=== PATIENT | female | born 1985 | race Native Hawaiian/Other Pacific Islander ===

== ENCOUNTER 2017-10-27 07:55 | Inpatient (IN) | payer OTHER ==
[2017-10-27] MEDS: Lactated Ringer's 1,000 ML IV SCH ×2 (08:30→23:03)
--- NOTE | 2017-10-27 08:49 | OBHP ---
Datetime: 10/27/2017 08:45 IP Adm Impression: Term, intrauterine IP Admit Plan: Admit to unit Admit Comment, IP Provider: @ 39.4 wks GA c/o diffuse itching worsneing, no rash and decreased movments x 1 days, dneis lof, vb, and ctx pain every 5-10 min increasing intesnsity adn seviery t 12/18 OB: P0 GY: Ndenies PMH: hypothryoid, anemia PSH: dneis FHX: dneis SHX: negaitve etoh/tobacc/drugs MEDS: Iron, pnv A/P @ 39.4 wks GA IOL for intrahepatic cholestaiss -admit to L+D -r'b/a/i of iold dw paitent -npo, ivf -admissoin labs -cervidl -pain manamgnet Pelvic Type - PN: Adequate Extremities - PN: Normal Abdomen - PN: Normal Back - PN: Normal Breast - PN: Normal Lungs - PN: Normal Heart - PN: Normal Thyroid - PN: Normal Neurologic - PN: Normal HEENT - PN: Normal General - PN: Normal Presentation-Admit: Vertex FHR - Baseline A Provider: 150 Membranes, Provider: Intact Contraction Comments Provider: irregular Comments, ACOG Physical Exam: Abd: minimla erytema on rlq Gestation - Est Wks by US: 39.4 IP Hx Assessment: The History has been Reviewed and is Current EGA AdmitDate IP: 39.4 Vital Signs Provider: Reviewed; Within Normal Limits IP Chief Complaint: Other NICHD Variability Prov Fetus A: Moderate 6-25bpm FHR Category Provider Fetus A: Category I NICHD Decel Fetus A IP Provider: None Genitourinary Exam: Normal DTRs - PN: Normal
[2017-10-27 09:26] LABS: BASO % 0.3 % (0.0-2.0); EOS % 0.5 % (0.0-4.0); HEMOGLOBIN 9.8 g/dL (11.0-16.0); LYMPH % 16.5 % (20.0-40.0); MEAN CORPUSCULAR HEMOGLOBIN 23.6 pg (27.0-31.0); MEAN PLATELET VOLUME 9.3 fL (7.2-11.7); MONO # 0.3 K/uL (0.0-0.8); MONO % 5.9 % (0.0-10.0); NEUT # 4.5 K/uL (1.8-7.0); NEUT % 76.8 % (50.0-75.0); NRBC % 0.1 % (0.0-2.0); RBC 4.14 Mil/uL (3.80-5.20); RED CELL DISTRIBUTION WIDTH 29.5 % (11.5-14.5); WHITE BLOOD COUNT 5.8 K/uL (4.8-10.8)
[2017-10-27 09:53] LABS: ALT/SGPT 8 U/L (9-52); AST/SGOT 21 U/L (14-36); BLOOD UREA NITROGEN 3 mg/dL (7-17); CALCIUM 8.6 mg/dl (8.6-10.4); GFR AFRICAN-AMERICAN > 60; GFR NON-AFRICAN AMERICAN > 60
--- NOTE | 2017-10-27 21:25 | OBPN ---
Datetime: 10/27/2017 21:22 IP Progress Impression: Normal progression of labor IP Progress Plan: Continue present management Membranes, Provider: Intact Contraction Comments Provider: q 2-5 min FHR - Baseline A Provider: 140 Gestation - Est Wks by US: 39.4 Presentation-Admit: Vertex IP Progress Note Comment: Pt seen and examiend and rperots crampign eeyr 5 min, dnie slof, vb, +Fm VSs EF: Cat I TOCO: q 2- 5min MEDS: Cervidl removed 21:00 A/P @ 39+ wks IOL for intrahepatic cholestasis of -s/p cervidl -cont toco and efm -cytotoc -cont ion -pain mangmnet Vital Signs Provider: Reviewed; Within Normal Limits FHR Category Provider Fetus A: Category I NICHD Variability Prov Fetus A: Moderate 6-25bpm Dilatation, Provider: 1 Effacement, Provider: 50 Station, Provider: -3 NICHD Decel Fetus A IP Provider: None
[2017-10-28] MEDS ORDERED: Oxytocin 30 UNIT 30 UNITS/500 ML BAG IV SCH (02:30)
[2017-10-28] MEDS ORDERED: Oxytocin 30 UNIT 30 UNITS/500 ML BAG IV ONE (02:34)
[2017-10-28] MEDS ORDERED: Fentanyl/Bupivacaine HCl 0 ML EPI ONE (07:18)
--- NOTE | 2017-10-28 08:56 | OBPN ---
Datetime: 10/28/2017 08:53 IP Progress Impression: Normal progression of labor; Reassuring heart rate IP Progress Plan: Continue present management Membranes, Provider: Intact FHR - Baseline A Provider: 150 Gestation - Est Wks by US: 39.5 Presentation-Admit: Vertex IP Progress Note Comment: pt seen and examiend reporting pressure s/p epidural VSS VE: 2cm A/P @ 39.5 wks GA iol for inhtraheptic choelstaiss -pitocin -pain amgnnet -cont current managment FHR Category Provider Fetus A: Category I NICHD Variability Prov Fetus A: Moderate 6-25bpm Dilatation, Provider: 2 Effacement, Provider: 60 Station, Provider: -2 NICHD Decel Fetus A IP Provider: None
--- NOTE | 2017-10-28 11:57 | OBPN ---
Datetime: 10/28/2017 11:54 IP Progress Impression: Normal progression of labor IP Procedures: Artificial ROM IP Progress Plan: Continue present management Membranes, Provider: Ruptured Amniotic Fluid Color, Provider: Clear FHR - Baseline A Provider: 150 Gestation - Est Wks by US: 39.5 Presentation-Admit: Vertex IP Progress Note Comment: pt seen adn examiend s/p eidural VSS EFM: Cat I DODIE: q 2-5 min VE: 4cm Arom clear A/P G1p) @ 39.5 wks GA in labor -cont pitoicn as per fprotocol -pain manamgnet -cont toco adn efm Vital Signs Provider: Reviewed; Within Normal Limits FHR Category Provider Fetus A: Category I NICHD Variability Prov Fetus A: Moderate 6-25bpm Dilatation, Provider: 4 Effacement, Provider: 70 Station, Provider: -1 NICHD Decel Fetus A IP Provider: None
--- NOTE | 2017-10-28 17:24 | OBPN ---
Datetime: 10/28/2017 17:18 IP Progress Plan: Continue present management Membranes, Provider: Ruptured FHR - Baseline A Provider: 150 Gestation - Est Wks by US: 39.5 Presentation-Admit: Vertex IP Progress Note Comment: pt complaiing of pain on right side that comes and goes s/ pepidural VS as above EFM: cat I TOCO: q 2-4 min Pitoicn 12 mu/min VE: /-1 IUPC inserted A/P @ 39.5 wks GA in labor -f/u monetvideo unitsl -pitoicn augmentation as per protocal -cont current manamgnet NICHD Variability Prov Fetus A: Moderate 6-25bpm
[2017-10-28] MEDS ORDERED: Fentanyl/Bupivacaine HCl 250 ML EPI ONE (18:19)
[2017-10-28] MEDS ORDERED: Sodium Citrate/Citric Acid 15 ml Sol PO STA (19:07)
--- NOTE | 2017-10-28 19:19 | OBPN ---
Datetime: 10/28/2017 19:05 IP Progress Impression: Non-reassuring heart rate IP Informed Consent Obtain: Section Delivery IP Progress Plan: Continue present management; Deliver- Section FHR - Baseline A Provider: 150 IP Progress Note Comment: pt penny and examien dwith recurrent late decerlatin oxygen, left lateral ivh , dc pitoiocn VE: 4cm EMFP: 150/min cal , rcurrent late TOCO: q 2 min A/P @ 39.5 wks GA with Cat II tracing remote from delivery r/b/a/i pltcs not lmtied to bleeidng, infection, injury to bowel , bladder dw paitent consent obtained cefoxitin, pepcid, bicitra or/anesehis aware Vital Signs Provider: Reviewed; Within Normal Limits FHR Category Provider Fetus A: Category II NICHD Variability Prov Fetus A: Minimal - Undetectable to <5bpm Dilatation, Provider: 4 Effacement, Provider: 70 Station, Provider: -2 NICHD Decel Fetus A IP Provider: None; Late
[2017-10-28] MEDS ORDERED: Sodium Citrate/Citric Acid 15 ml Sol ONE (19:32)
[2017-10-28 19:50] LABS: SQUAMOUS EPITHIAL < 1 /hpf (0-5); URINE BACTERIA MANY (<OCC); URINE BILIRUBIN NEGATIVE (NEGATIVE); URINE BLOOD 3+ (NEGATIVE); URINE CLARITY Clear (Clear); URINE COLOR Yellow (YELLOW); URINE GLUCOSE (UA) 1+ mg/dL (Normal); URINE LEUKOCYTE ESTERASE TRACE Leu/uL (Negative); URINE PROTEIN 1+ mg/dL (NEGATIVE); URINE UROBILINOGEN NORMAL mg/dL (0.2-1.0)
[2017-10-28] MEDS ORDERED: cefOXitin IV 2 gm in Saline 2 GM in Sodium Chloride 0.9% 50 ML IV SCH (20:00)
[2017-10-28] MEDS ORDERED: Phenylephrine 10 mg/ml Inj ONE (20:04)
[2017-10-28] MEDS ORDERED: Morphine 1 mg/ml preservative-free Inj(Duramorph) ONE (20:04)
[2017-10-28] MEDS ORDERED: Oxycodone/Acetaminophen 5/325 mg Tab PO PRN ×2 (21:07)
--- NOTE | 2017-10-28 21:07 | OBDS ---
DELIVERY PERSONNEL Delivery Doctor: Bhumi Lockhart MD Scrub Nurse: Valerie Ruth RN Pulmonary Specialist: Miriam Kim RN Anesthesiologist: Dr Thomas MATERNAL INFORMATION Delivery Anesthesia: Spinal Medications in Delivery: pITOCIN 20 UNITS iv,mETHERGINE 0.2 MG IM Placenta Cultured: Yes Maternal Complications: None Provider Comments: live female agpar 9,9 weigh tof 7lbs 3 ounces noraml apeparing uteurs, tub e and ovaries, crod x [facility] LAB[facility] SUMMARY EDC: 10/30/2017 00:00 No. Babies in Womb: 1 Attempted: No Labor Anesthesia: Epidural LABOR INFORMATION Reason for Induction: Other Reason for Induction Other: CHOLESTASISof prgenancy Onset of Labor: 10/28/2017 08:40 Cervical Ripening Agents: Cytotec @ (Annotations: 25mcg PO) Oxytocin: Induction Group B Beta Strep: Negative Antibiotics # of Doses: 0 Antibiotics Time of Last Dose: 0 Steroids Given: None Reason Steroids Not Administered: Not Applicable MEMBRANES Membranes Rupture Method: Artificial Amniotic Fluid Color: Clear Amniotic Fluid Amount: Moderate Amniotic Fluid Odor: Normal STAGES OF LABOR Stage 3 hrs: 0 Stage 3 min: 1 Total Time in Labor hrs: 11 Total Time in Labor min: 47 CSECTION DELIVERY Primary Indication: Nonreassuring Status Secondary Indication: Secondary Arrest of Dilatation CSection Urgency: Non Elective CSection Incidence: Primary Labor: Labor Elective: Nonelective CSection Incision: Lower Uterine Transverse BABY A INFORMATION Infant Delivery Date/Time: 10/28/2017 20:26 Method of Delivery: Born in Route : No : N/A Forceps: N/A Vacuum Extraction: N/A Shoulder Dystocia : No SHOULDER DYSTOCIA BABY A Infant Delivery Date/Time: 10/28/2017 20:26 PRESENTATION/POSITION BABY A Presentation: Cephalic Cephalic Presentation: Vertex Vertex Position: Left Occipital Anterior Breech Presentation: N/A PLACENTA INFORMATION BABY A Placenta Delivery Time : 10/28/2017 20:27 Placenta Method of Delivery: Spontaneous Placenta Status: Delivered SCORES BABY A Heart Rate 1 min: >100 bpm Resp Effort 1 min: Good Cry Reflex Irritability 1 min: Cough or Sneeze or Pulls Away Muscle Tone 1 min: Active Motion Color 1 min: Body [place], Extremities Blue SCORE 1 MIN: 9 Heart Rate 5 min: >100 bpm Resp Effort 5 min: Good Cry Reflex Irritability 5 min: Cough or Sneeze or Pulls Away Muscle Tone 5 min: Active Motion Color 5 min: Body [place], Extremities Blue SCORE 5 MIN: 9 INFANT INFORMATION BABY A Gestational Age at Delivery: 39.5 Gestational Status: Term Outcome : Liveborn Condition : Stable Infant Sex: Female IDENTIFICATION/MEDS BABY A ID Band Number: [id number] ID Band Location: Left Leg; Left Arm Sensor Applied: Yes Sensor Number: [id number] Sensor Location : Cord Clamp Vitamin K Given : Aquamephyton 1 mg IM; Left Thigh Erythromycin Given: Given Both Eyes WEIGHT/LENGTH BABY A Infant Birthweight (gms): 3250 Weight (lb): 7 Infant Weight (oz): 3 Length Inches: 20.00 Infant Length cms: 50.8 CORD INFORMATION BABY A No. Cord Vessels: 3 Nuchal Cord : Around Neck x1, Loose Cord Blood Taken: Yes Infant Suction: Mouth; Nose ASSESSMENT BABY A Infant Complications: None Physical Findings at Delivery: Within Normal Limits Respirations: Appears Normal Knitter Mechanic/ALS Called : Yes Infant Care By: SADE Transferred To: Remains with Mother
--- NOTE | 2017-10-28 21:10 | PCM.SURG1 ---
Surgeon's Initial Post Op Note - Surgeon's Notes Surgeon: Nathalie Lockhart MD Geriatric Social Worker: Jefferson Jauregui MD Type of Anesthesia: Spinal Pre-Operative Diagnosis: Term intrauteirne , Cat II tracing remote from delivery Operative Findings: live female apgars 9,9 weight of 7lbs 3ounces clau appearin tuerus, tubes adn ovareis, pediatricn prsent for dleiveyr. Dr Jefferson Jauregui was srugical cashier assistant and present for entire case adn essential in gaining entry, retraction, exposure, holding the bladder blade, helpign to close all layers adn obtain hemostasis, Post-Operative Diagnosis: same as above Operation Performed: primary low transverse cesearen section Specimen/Specimens Removed: placenta Estimated Blood Loss: EBL {In ML}: 800 Blood Products Given: N/A Drains Used: No Drains Post-Op Condition: Good Date of Surgery/Procedure: 10/28/17 Time of Surgery/Procedure: 08:25
--- NOTE | 2017-10-29 01:24 | OP ---
PROCEDURE DATE: 10/28/2017 SURGEON: Nathalie Lockhart MD. SWIMMING POOL MAINTENANCE SUPERVISOR: Jefferson Soria MD. TYPE OF ANESTHESIA: Spinal. PREOPERATIVE DIAGNOSIS: Term intrauterine , category II tracing, remote from delivery. POSTOPERATIVE DIAGNOSIS: Term intrauterine , category II tracing, remote from delivery. OPERATIVE FINDINGS: Live female , Apgars 9 and 9, weight is 7 pounds 3 ounces, normal-appearing uterus, tubes, and ovaries bilaterally. Internet Sales Consultant present for delivery. Dr. Jefferson Soria who was the neurosurgical physician assistant, was present for the entire case and was essential in gaining entry, retraction, exposure, holding the bladder blade, helping to close all layers and obtaining hemostasis. OPERATION PERFORMED: Primary low transverse section. SPECIMEN REMOVED: Placenta. ESTIMATED BLOOD LOSS: 800 mL. BLOOD PRODUCTS: None. COMPLICATIONS: None. DESCRIPTION OF PROCEDURE: The patient was taken to the operating room, where she had epidural with spinal anesthesia. Once it was found to be adequate, she was positioned on the operating table in dorsal supine position. The patient was then prepped and draped in the usual sterile fashion. A time-out confirmed correct patient and correct procedure. The patient was given preoperative prophylactic antibiotics. Pfannenstiel skin incision was made with a scalpel and carried down to the underlying layer of the fascia with the Bovie. The fascia was incised in the midline and the incision was extended laterally and bluntly. The inferior aspect of the fascial incision was grasped with Allis and Bud clamps and underlying rectus muscle dissected off bluntly. Attention was then turned to the superior aspect of the incision in a similar fashion. It was grasped with Allis and Bud clamps and the underlying rectus muscles were dissected off bluntly. The rectus muscle was then bluntly in the midline. The peritoneum was identified and entered into clear space. The incision was extended laterally and superiorly until there was good visualization of the bladder. The lower end of the Bryn was then reinserted. Lower uterine segment was incised in a transverse fashion. The uterine incision was extended laterally bluntly. There was umbilical cord noted protruding from the umbilical incision. The surgeon's hand entered the uterine cavity and atraumatic delivery of the 's head followed by delivery of shoulders followed by delivery of the body. Both oral and nasal passages of the baby were bulb suctioned. The umbilical cord was clamped and cut. The baby handed off to awaiting lead oxide mill tender. Cord blood and cord gases were collected and sent x2. The placenta was then delivered manually. The uterus exteriorized and cleared off all clots and debris. The uterine incision was repaired with 0- Vicryl in running continuous locked fashion. A second layer of the same suture was used to close the uterus in a running imbricating manner. There were normal tubes and ovaries bilaterally. There was good hemostasis at the uterine incision site. The uterus was then returned to the abdomen. The paracolic gutters were cleared of clots and debris. The peritoneum was reapproximated with 2-0 Chromic in running continuous fashion. The rectus was reapproximated and closed with 2-0 Chromic in an interrupted manner. The fascia was reapproximated and closed with 0 Vicryl in a running continuous fashion. Subcutaneous layers were closed with 2-0 plain in an interrupted manner. The skin was reapproximated and closed with 4-0 Monocryl in a running subcuticular fashion. At the end of the procedure, all needles, sponge, and instrument counts were noted to be correct x2. The patient tolerated the procedure well and was transferred to the recovery room in stable condition. Nathalie Lockhart MD
--- NOTE | 2017-10-29 06:15 | OBPPN ---
Datetime: 10/29/2017 06:04 PP Pain Prov: Within normal limits PP Nausea Prov: Denies PP Flatus Prov: Yes PP BM Prov: No PP Breasts Prov: Normal PP Heart Prov: Normal PP Lungs Prov: Normal PP Abdomen/Uterus Prov: Normal PP Lochia Prov: Normal PP Vulva/Perineum Prov: Normal PP CVA Tenderness Prov: Normal PP Extremities Prov: Normal PP C/S Incision Prov: Normal PP Progress Prov: Normal PP Impression Prov: Normal progression PP Plan Prov: Continue present management PP Progress Note Prov: pt seen and examiend and reprots pain controlled with medicaion. pt dnies any fever, chills, naseu, vomiting, cp, sob, pt ambaitng, voiding, passing flatus, toleratign regalar di et, and breast feeding VSS PE GEN NAD AA Ox 3 BREAST: NT, Non engorged b/l RESP: CTAB?l CVS: +S1/S2, RRR ABD: soft, NT, ND, no gurading no rebound tendneresn, no rigidty FUNDUS: Firm, at leve of umbiucs INCICSION C/D/I healing well VE: minimal lochia ,non foul smelling, Laceratoin site non tender EX:T negtaive turner's sign, negtiv calf tendneress A/P s/p PLTCxS POD #1 -pain management -am labs -regular diet -encourage ambutaion, breast feeding -routine postop care -Incentive spirometer, abdominal binder Vital Signs Provider PP: Reviewed; Within Normal Limits
[2017-10-29 08:05] LABS: ALB/GLOB RATIO 0.9 (1.0-2.1); ALBUMIN 2.1 g/dL (3.5-5.0); ALT/SGPT 20 U/L (9-52); AST/SGOT 20 U/L (14-36); BLOOD UREA NITROGEN 5 mg/dL (7-17); CALCIUM 8.1 mg/dl (8.6-10.4); GFR AFRICAN-AMERICAN > 60; GFR NON-AFRICAN AMERICAN > 60
[2017-10-29] MEDS: Simethicone 80 mg Chewtab PO SCH ×4 (11:26→23:15)
[2017-10-29 12:50] LABS: BASO % 0.4 % (0.0-2.0); HEMOGLOBIN 8.8 g/dL (11.0-16.0); LYMPH # 0.9 K/uL (1.0-4.3); LYMPH % 8.2 % (20.0-40.0); MEAN CORPUSCULAR HEMOGLOBIN 24.1 pg (27.0-31.0); MEAN CORPUSCULAR HGB CONC 32.1 g/dL (33.0-37.0); MEAN PLATELET VOLUME 10.2 fL (7.2-11.7); MONO # 0.7 K/uL (0.0-0.8); MONO % 6.2 % (0.0-10.0); NEUT # 9.3 K/uL (1.8-7.0); NEUT % 85.2 % (50.0-75.0); NRBC % 0.1 % (0.0-2.0); PLATELET COUNT 139 K/uL (130-400); RBC 3.64 Mil/uL (3.80-5.20); RED CELL DISTRIBUTION WIDTH 30.3 % (11.5-14.5); WHITE BLOOD COUNT 10.9 K/uL (4.8-10.8)
[2017-10-29 13:15] LABS: ANISOCYTOSIS SLIGHT; HYPOCHROMIC SLIGHT; LYMPHOCYTE 7 % (20-40); MONOCYTE 7 % (0-10); NEUTROPHIL 86 % (50-75); PLATELET ESTIMATE NORMAL (NORMAL); POLYCHROMIC SLIGHT; TOTAL CELLS COUNTED 100; TOXIC GRANULATION PRESENT
[2017-10-29 13:16] LABS: LARGE PLATELETS PRESENT
[2017-10-29] MEDS ORDERED: Bisacodyl 5mg EC Tab PO ONE ×2 (21:08→23:15)
[2017-10-30] MEDS: Simethicone 80 mg Chewtab PO SCH ×4 (09:47→22:09)
[2017-10-30 11:45] LABS: BASO % 0.2 % (0.0-2.0); EOS % 0.1 % (0.0-4.0); LYMPH # 1.3 K/uL (1.0-4.3); LYMPH % 10.9 % (20.0-40.0); MEAN CELL VOLUME 75.3 fL (81.0-99.0); MEAN CORPUSCULAR HEMOGLOBIN 23.6 pg (27.0-31.0); MEAN CORPUSCULAR HGB CONC 31.3 g/dL (33.0-37.0); MONO # 0.6 K/uL (0.0-0.8); MONO % 5.2 % (0.0-10.0); NEUT # 9.7 K/uL (1.8-7.0); NEUT % 83.6 % (50.0-75.0); RBC 3.84 Mil/uL (3.80-5.20); WHITE BLOOD COUNT 11.6 K/uL (4.8-10.8)
--- NOTE | 2017-10-30 15:24 | OBPPN ---
Datetime: 10/30/2017 08:45 PP Pain Prov: Within normal limits PP Nausea Prov: Denies PP Flatus Prov: Yes PP BM Prov: Yes PP Breasts Prov: Normal PP Heart Prov: Normal PP Lungs Prov: Normal PP Abdomen/Uterus Prov: Normal PP Lochia Prov: Normal PP Vulva/Perineum Prov: Normal PP Extremities Prov: Normal PP C/S Incision Prov: Normal PP Progress Prov: Normal PP Comments Phys Exam Prov: inciscon c/d/i healing well PP Impression Prov: Normal progression PP Plan Prov: Continue present management PP Progress Note Prov: Patient seen and examined at bedside. Per nursing no acute events overnight. Patient is doing well, pain is controlled. Lochia is mild. Ambulating and tolerating diet. Urinating without difficulty, passing flatus, and having BM. Breast feeding. Denies headaches, dizziness, cp, p alpitations, sob, abdominal pain, urinary symptoms. VS: 117/69 84 99.0 Gen: AAOx3 breast; non tneder, non enroged b/l resp ctab/l cvs rr, +S1/S2 Abd: Soft, appropriately tender, fundus firm, incision c/d/i ve; minaml lochai, fundus firm, belwo lieve of uicusli Ext: Mild edema B/L, no calf tenderness Labs: 13.0>11.0/31.9<223 16.7>8.9/25.5<202 F/U am CBC A positive Rubella immune A/P: 30 year old s/p PLTCD 2/2 NRFHT POD#2 -Stable, afebrile -Pain control : percocet and motrin prn -Encourage ambulation and hydration -Encourage -F/U am CBC -Continue routine care -Anticipate D/C home tomorrow -Plan discussed with Dr Richy Oneill DO PGY-1 agree with above pt seen adn eamiend cont routien post op faisalmgalexander antic dc in ut Vital Signs Provider PP: Reviewed; Within Normal Limits
--- NOTE | 2017-10-30 15:24 | OBDCSUM ---
Datetime: 10/30/2017 15:22 Follow up at, Provider: Dr Lockhart Disch Instr Diet: Regular Discharge Instructions, Provider: Routine instructions given Discharge Diagnosis, Provider: Term Delivered Discharge Time: 10/30/2017 15:22 Disch Activity Restrictions: No sexual activity; Nothing in vagina - [place], tampons, douche Discharge Comment, Provider: dc in am Contraception after Delivery: Not Planning to Use
[2017-10-31 08:53] VITALS: BP 107/62; PULSE 80; RESP 18; TEMP 98.1; O2SAT 100
[2017-10-31] MEDS: Simethicone 80 mg Chewtab PO SCH ×2 (09:46→13:44)
== END 2017-10-31 17:05 | disposition home or self-care (01) | DRG 765 ==
LOC: C.EROB 07:55 → C.4D 08:18 → EDBD 08:18 → C.4M 10-29
PROVIDERS: ADMIT Obstetrics & Gynecology; ATTEND Obstetrics & Gynecology
PROC: 10D00Z1 Extraction of Products of Conception, Low, Open Approach (ICD-10-PCS; principal; 2017-10-28)
DX: O76 Abnormality in fetal heart rate and rhythm complicating labor and delivery (principal); K83.1 Obstruction of bile duct; O26.62 Liver and biliary tract disorders in childbirth; O62.1 Secondary uterine inertia; O36.8130 Decreased fetal movements, third trimester, not applicable or unspecified; O99.284 Endocrine, nutritional and metabolic diseases complicating childbirth; E03.9 Hypothyroidism, unspecified; O99.02 Anemia complicating childbirth; D64.9 Anemia, unspecified; O62.8 Other abnormalities of forces of labor; O75.89 Other specified complications of labor and delivery; L29.9 Pruritus, unspecified; Z37.0 Single live birth; Z3A.39 39 weeks gestation of pregnancy